=== PATIENT | female | born 1985 | race Caucasian/White ===

== ENCOUNTER → 2018-04-03 | Outpatient (CLI) | payer BC ==
--- NOTE | 2018-04-03 15:07 | CONS ---
CONSULTATION REASON FOR CONSULTATION: This is a consultation note for sleep apnea. 32-year-old female patient, referred to me for sleep apnea. The patient was suspected of obstructive sleep apnea. She has been told this by various people. She has been told this by Dr. Witt her dentist. Recently while undergoing a foot arch correction surgery the patient had difficulty waking up from anesthesia and she was snoring and gasping and having prolonged apneas. The anesthesiologist at [facility] also suggested to her having the evaluation done here. She does snore. She has excessive daytime sleepiness and fatigue. She wakes up tired and has trouble paying attention and has also problems with memory and concentration. She goes to bed around 8:30 pm wakes at 5:00 am in the morning. It takes a few minutes to fall asleep. Tyler score is 11 for now. Overall she has gained about 20 pounds over the past 5 years. She prefers to sleep on her side. She says that she is a shallow sleeper and she wakes up very easily with any noise makes her wake up. PAST MEDICAL HISTORY: Obesity. PAST SURGICAL HISTORY: Includes a myelomeningocele removal back in 1984, cholecystectomy on 02/12/2018, tonsillectomy and adenectomy 1991, x2 and foot surgery with correction of the foot arch. DRUG ALLERGIES: Not known. MEDICATIONS: None. SOCIAL HISTORY: Nonsmoker. No history of alcohol. No history of IV drugs. FAMILY HISTORY: Sister with narcolepsy and uncle with sleep apnea. REVIEW OF SYSTEMS: 12-point review of system was done. The patient denies having to be told that she quits breathing. Her however has noted that she snores very loud. No episodes of choking. No nocturia. No gasping for air. No sleepwalking. No sleep talking. No claustrophobia. No sexual dysfunction. PHYSICAL EXAMINATION: Her current vitals: BP is 141/65, pulse 107, respirations 16, saturation 99% on room air. Temperature 98.4, height is 63 inches. Weight 53.4, and BMI is 44.6, Tyler score is 11. Neck size 15.5. GENERAL APPEARANCE: Calm, comfortable. HEENT: The patient has partial in the upper jaw. No overbite. Mallampati class 4. No goiter or neck masses. Short neck. LUNGS: Clear to auscultation. HEART: Sounds are regular rate and rhythm. Normal S1, S2. No S3. No murmurs. ABDOMEN: Soft, nontender. No organomegaly. EXTREMITIES: No edema. No cyanosis or clubbing. NEUROLOGIC: Alert and oriented x3. No focal neurological deficits. PSYCHIATRIC: Negative for anxiety or depression. IMPRESSION: 1. Obstructive sleep apnea clinically suspected, under investigation. 2. Loud snoring. 3. Daytime fatigue and sleepiness. Tyler Score of 11. 4. Obesity BMI of 44.6. PLAN: 1. Proceed with a screening polysomnogram. 2. Encourage weight loss. 3. Implement good sleep hygiene measures. 4. We will continue to follow. MMODL / IJN: [id number] /
== END | disposition home or self-care (01) ==
LOC: SLEEP 13:04
PROVIDERS: ATTEND Internal Medicine Critical Care Medicine
DX: G47.10 Hypersomnia, unspecified (principal); E66.9 Obesity, unspecified; Z68.41 Body mass index [BMI] 40.0-44.9, adult
CPT/HCPCS: 99211

== ENCOUNTER → 2018-07-31 | Outpatient (CLI) | payer BC ==
--- NOTE | 2018-07-31 17:33 | PN ---
PROGRESS NOTE 33-year-old female patient diagnosed having mild ELLIOT with an AHI of 9.8. The patient has gone on her CPAP machine approximately 2-1/2 months back. She has demonstrated compliancy and she has passed her compliancy evaluation with the [employer] and insurance company. On today's evaluation she is coming in to get further advice regarding her ongoing treatment. I noted that she has not used her CPAP machine over the past 3 weeks. Apparently she had a bout of sinusitis and this was treated by her primary care physician. The patient was given a course of Augmentin twice a day for 10 days and Flonase. Today's speech is nasal yet for the most part, she is able to breathe through her nose. No facial pain. No frontal pain. No maxillary pain. No fever or chills. No significant purulent discharge. I checked the compliance data over the past 76 days and the patient has used the CPAP 59 out of the 76 days. She has been achieving 4.8 hours of CPAP use per night. Her P90 pressure is at 10.9, her leak factor is 6 L per minute, AHI while on treatment is down to 0.7. She is using an AirFit F10 full-face mask. Her weight is still up but she is trying to lose weight. She has already lost around 8 pounds since her initial evaluation. Overall, she is benefitting from treatment and she is interested in continuing the CPAP therapy for now. REVIEW OF SYSTEMS: 12-point review of system was done. Positive findings are mentioned above in history of present illness. No headaches for now. No fever or chills. No recurrent sinus infections. Her CPAP unit is clean and there is no indication of any bacterial contamination of the machine or the humidification chamber. She is using the heated tubing system for now. No nausea or vomiting. No abdominal pain. No dysuria, frequency or urgency. No headaches. No altered mentation. No chest pain. No cough or sputum production. PHYSICAL EXAMINATION: BP is 124/90, pulse 104, respirations 16, temperature 98.2. Saturation 97% on room air. GENERAL APPEARANCE: Calm, comfortable. Head is atraumatic, normocephalic. NECK: Supple. No JVD. No goiter or neck masses. Lungs diminished, otherwise clear. HEART: Sounds regular rate and rhythm. Normal S1, S2. No S3. No murmurs. ABDOMEN: Soft, nontender. No organomegaly. EXTREMITIES: No edema. No cyanosis or clubbing. NEUROLOGIC: The patient is alert and oriented x3. No focal neurological deficits. PSYCHIATRIC: Negative for anxiety or depression. IMPRESSION: 1. Symptomatic mild obstructive sleep apnea with an AHI of 9.8, currently undergoing CPAP therapy. The patient is on APAP with an average pressure of 10.9, with excellent clinical response. 2. Acute sinusitis being treated with antibiotics. This has affected her compliance. In general is the patient has been unable to use her CPAP unit for the past 3 weeks. Yet, she has recovered and she is going back on treatment. 3. Obesity with interval 8 pounds weight loss. Current weight is down to 242. PLAN: 1. Encourage further weight loss. 2. Continue APAP therapy at the same level of pressure. 3. AirFit F10 full-face mask. 4. Contact back if there is any recurrent sinus infections. 5. Continue the full-face mask. 6. Maintain good sleep hygiene measures. 7. We will continue to follow. MMODL / IJN: [id number] /
== END | disposition home or self-care (01) ==
LOC: SLEEP 14:06
PROVIDERS: ATTEND Internal Medicine Critical Care Medicine
DX: G47.33 Obstructive sleep apnea (adult) (pediatric) (principal); J01.90 Acute sinusitis, unspecified; E66.9 Obesity, unspecified; Z99.89 Dependence on other enabling machines and devices

== ENCOUNTER → 2018-08-31 | Outpatient (CLI) | payer BC ==
--- NOTE | 2018-09-01 10:35 | ECHOF ---
Referral Reason:R00.2 Palpitations; R06.02 SOB MEASUREMENTS -------- HEIGHT: 160.0 cm WEIGHT: 106.6 kg BP: RVIDd: 2.6 cm (< 3.3) IVSd: 1.0 cm (0.6 - 1.1) LVIDd: 5.1 cm (3.9 - 5.3) LVPWd: 1.0 cm (0.6 - 1.1) IVSs: 1.2 cm LVIDs: 3.5 cm LVPWs: 1.2 cm LAESV Index (A-L): 19.75 ml/m Ao Diam: 3.1 cm (2.0 - 3.7) AV Cusp: 1.9 cm (1.5 - 2.6) LA Diam: 3.1 cm (2.7 - 3.8) EPSS: 0.2 cm MV E Avinash: 0.88 m/s MV DecT: 180 ms MV A Avinash: 0.70 m/s MV E/A Ratio: 1.25 RAP: 5.00 mmHg RVSP: 11.06 mmHg MV EF SLOPE: 78.36 mm/s (70 - 150) MV EXCURSION: 1.78 cm (> 18.000) FINDINGS -------- Sinus rhythm. This was a technically good study. The left ventricular size is normal. Left ventricular wall thickness is normal. Overall left vent ricular systolic function is normal with, an EF between 55 - 60 %. The right ventricle is normal in size and function. Normal LA size by volume 22+/-6 ml/m2. The right atrium is normal in size. The aortic valve is trileaflet, and appears structurally normal. No aortic stenosis or regurgitation. The mitral valve is normal. There is trace mitral regurgitation. Trace tricuspid regurgitation present. Right ventricular systolic pressure is normal at < 35 mmHg. There is no evidence of pulmonary hypertension. Trace/mild (physiologic) pulmonic regurgitation. The aortic root size is normal. Normal inferior vena cava with normal inspiratory collapse consistent with estimated right atrial pre ssure of 5 mmHg. There is no pericardial effusion. CONCLUSIONS -------- 1. Sinus rhythm. 2. This was a technically good study. 3. The left ventricular size is normal. 4. Left ventricular wall thickness is normal. 5. Overall left ventricular systolic function is normal with, an EF between 55 - 60 %. 6. Normal LA size by volume 22+/-6 ml/m2. 7. The aortic valve is trileaflet, and appears structurally normal. No aortic stenosis or regurgitati on. 8. There is trace mitral regurgitation. 9. Trace tricuspid regurgitation present. 10. Right ventricular systolic pressure is normal at < 35 mmHg. 11. There is no evidence of pulmonary hypertension. 12. Trace/mild (physiologic) pulmonic regurgitation. 13. The aortic root size is normal. 14. There is no pericardial effusion. IT APPLICATION DEVELOPMENT MANAGER: Partha Arreola RDCS
== END ==
LOC: RADECHMAIN 12:36
PROVIDERS: ATTEND Family Medicine
DX: I37.1 Nonrheumatic pulmonary valve insufficiency (principal)
CPT/HCPCS: 93225; 93226; 93306

== ENCOUNTER → 2019-12-03 | Outpatient (CLI) | payer BC ==
--- NOTE | 2019-12-04 07:16 | SFUN ---
SLEEP CENTER FOLLOW UP NOTE This is a very pleasant 34-year-old female patient who has been seen by Dr. Go here in the [facility] back in 2018. She was found to have mild obstructive sleep apnea with an AHI of 9.8. She was fitted for a CPAP machine and an APAP with an average of 10.9 average pressure. She has been doing well for quite some time, unfortunately approximately 2 months ago, she had not been using her machine due to lack of proper equipment and tubing. She is here for a [id number] evaluation and reorder of her equipment. Her previous compliance data was evaluated and she was doing quite well. She had been utilizing an Air Fit F10 full-face mask. PHYSICAL EXAM: This is a very pleasant 34-year-old female patient. Maintaining good O2 saturations in the 90s on room air. Blood pressure 132/83, heart rate 100, respirations 16, temperature is 98.4, she is 98% O2 saturation on room air. She is 5 foot 3 inches at 263 pounds with a BMI of 46.5. HEAD: Normocephalic. Sclerae nonicteric. There is some crowding in the posterior pharynx. NECK: Supple. Trachea midline. LUNGS: Clear anteriorly and posteriorly. HEART: Regular, S1, S2. ABDOMEN: Soft, nontender. Bowel sounds are present. There is trace peripheral edema. No clubbing. No cyanosis. Peripheral pulses are intact. IMPRESSION: 1. Mild obstructive sleep apnea with an apnea-hypopnea index of 9.8. Initially programmed at APAP with an average pressure of 10.9. She has been tolerating this well. 2. History of sinusitis. 3. Obesity. 4. Anxiety/depression. PLAN: The patient was seen and evaluated by Dr. Go. He did fit her with a new Air Fit F 20 full-face mask, size small. He did order her new equipment and she is encouraged to bring her machine with her at her next appointment. She is again encouraged regarding the importance of weight loss and good sleep hygiene measures. She utilizes [employer] as her supplier. She will be seen here in 1 year unless she has any further questions or concerns. She verbalized understanding of the plan as agreeable. I, the cosigning physician, performed a history and physical examination on the patient. Lung sounds are clear. Maintain O2 saturation in the 90s on room air. I discussed the assessment and plan of care with my nurse practitioner, Lauryn Crenshaw. I attest the above note dictated by her. MMKALI / IJN: [id number] /
== END | disposition home or self-care (01) ==
LOC: SLEEP 14:36
PROVIDERS: ATTEND Internal Medicine Critical Care Medicine
DX: G47.33 Obstructive sleep apnea (adult) (pediatric) (principal); E66.9 Obesity, unspecified; F32.9 Major depressive disorder, single episode, unspecified; F41.9 Anxiety disorder, unspecified; Z87.09 Personal history of other diseases of the respiratory system; Z99.89 Dependence on other enabling machines and devices; Z68.42 Body mass index [BMI] 45.0-49.9, adult

== ENCOUNTER → 2020-02-24 | Outpatient (CLI) | payer OTHER ==
--- NOTE | 2020-02-24 15:59 | XR ---
EXAM TYPE: LUMBAR SPINE X RAY SERIES COMPARISON: NONE HISTORY: Pain TECHNIQUE: 4 views are submitted. FINDINGS: Alignment is anatomic. There is degenerative disc disease with the most marked findings at L4-5 and L 5-S1. Grade 1 anterolisthesis of L5 on S1. Suggestion of previous laminectomy at levels L3-L5. No com pression deformities. IMPRESSION: 1. Multilevel degenerative disc disease with postsurgical changes. Rate 1 anterolisthesis L5 relative to S1.
== END | disposition home or self-care (01) ==
LOC: RADXRMAIN 15:43
PROVIDERS: ATTEND Emergency Medicine
DX: M43.16 Spondylolisthesis, lumbar region (principal); M51.36 Other intervertebral disc degeneration, lumbar region; Z98.890 Other specified postprocedural states
CPT/HCPCS: 72100

== ENCOUNTER 2020-12-16 15:15 | Emergency (ER) | payer BC, OTHER ==
[2020-12-16] MEDS ORDERED: ACETAMINOPHEN TAB 500 MG TAB PO STA (18:12)
[2020-12-16] MEDS ORDERED: SODIUM CHLORIDE 0.9% 1,000 ML IV ONE (18:12)
--- NOTE | 2020-12-16 18:15 | ED ---
SOB HPI - General Chief Complaint: Shortness of Breath Stated Complaint: sob post covid+/poss blood clots sent by pcp Time Seen by Provider: 12/16/20 17:48 Source: patient Mode of arrival: wheelchair Limitations: no limitations - History of Present Illness Initial Comments: 35 year-old male patient presents to the emergency department for evaluation of increased shortness of breath and headache. Patient was diagnosed with COVID-19 on 12/01/20, started having symptoms about three days before that. Six days ago patient was seen and evaluated at [facility] for worsening symptoms. She had labs and CT of her chest and then was discharged with steroids. Patient states that she started feeling poorly again today so had a televisit with her primary care physician. She was told that she had an "infection" in her lungs and "three small blood clots" and was told to come back to the ER for evaluation. Patient states today she feels more short of breath and has a headache. States her headache is frontal and started yesterday. Denies any blurred or double vision. Denies numbness currently, weakness or extremities. States she does feel nauseated today. Has no appetite. Denies any lower extremity swelling. Denies history of lung conditions. States that she has been using her inhaler without relief. She has not started a steroid gi mary ellen to her by the other hospital. Patient denies any recent rash, chest pain, abdominal pain, vomiting, diarrhea, constipation, back pain, numbness, tingling, dizziness, weakness, hematuria, dysuria, urinary urgency, urinary frequency, headache, visual changes, or any other complaints. - Related Data Home Medications Medication Instructions Recorded Confirmed Albuterol Sulfate [Albuterol 1 puff PO RT-Q4H PRN 12/16/20 12/16/20 Sulfate Hfa] Fexofenadine HCl [Janet Allergy] 180 mg PO HS 12/16/20 12/16/20 Previous Rx's Medication Instructions Recorded Dexamethasone 6 mg PO DAILY #10 tablet 12/16/20 Allergies Allergy/AdvReac Type Severity Reaction Status Date / Time amoxicillin [From Augmentin] AdvReac yeast Verified 12/16/20 18:27 infection clavulanic acid AdvReac yeast Verified 12/16/20 18:27 [From Augmentin] infection Review of Systems ROS Statement: Those systems with pertinent positive or pertinent negative responses have been documented in the HPI. ROS Other: All systems not noted in ROS Statement are negative. Past Medical History Past Medical History: Sleep Apnea/CPAP/BIPAP Additional Past Medical History / Comment(s): spina bifida pmdd, Covid 3/9 , anemia History of Any Multi-Drug Resistant Organisms: None Reported Past Surgical History: Adenoidectomy, Section, Cholecystectomy, Tonsillectomy Additional Past Surgical History / Comment(s): spina bifida surg as a child Past Psychological History: Anxiety Smoking Status: Never smoker Past Alcohol Use History: Rare Past Drug Use History: None Reported General Exam Limitations: no limitations General appearance: alert, in no apparent distress, other (Physical well- developed, well-nourished adult female patient in no acute distress. Vital signs upon presentation are temperature 100.1F, pulse 111, respirations 24, blood pressure 142/91, pulse ox 99% on room air.) Eye exam: Present: normal appearance, PERRL, EOMI. Absent: scleral icterus, conjunctival injection, periorbital swelling ENT exam: Present: normal exam, normal oropharynx, mucous membranes moist Respiratory exam: Present: normal lung sounds bilaterally. Absent: respiratory distress, wheezes, rales, rhonchi, stridor Cardiovascular Exam: Present: regular rate, normal rhythm, normal heart sounds. Absent: systolic murmur, diastolic murmur, rubs, gallop, clicks GI/Abdominal exam: Present: soft, normal bowel sounds. Absent: distended, tenderness, guarding, rebound, rigid Neurological exam: Present: alert, oriented X3, CN II-XII intact Psychiatric exam: Present: normal affect, normal mood Skin exam: Present: warm, dry, intact, normal color. Absent: rash Course Vital Signs 12/16/20 12/16/20 16:58 20:58 Temperature 100.1 F H Pulse Rate 111 H 112 H Respiratory 24 20 Rate Blood Pressure 142/91 147/75 O2 Sat by Pulse 99 98 Oximetry Medical Decision Making - Medical Decision Making 35-year-old female patient presents to the emergency department today for evaluation of worsening shortness of breath and nausea after being diagnosed with COVID-19. Physical examination reveals clear lung sounds. She was satting normally at 98-99% on room air. She was slightly tachycardic at 109 to 115. She did have a mild fever around 100.4. Labs reviewed and were unremarkable. CT chest angiography was obtained and showed no evidence for pulmonary embolism but did show ground glass opacities consistent with Covid-19 pneumonia. I did discuss findings and results with the patient. She'll be discharged with instructions to take steroids. Continue her inhaler. She will be given time off work until her fever resolves completely. She is instructed to follow-up with her primary care physician for recheck in 1-2 days. Return to the emergency department for any new, worsening, or concerning symptoms. She verbalizes understanding and agrees this plan. Case discussed with my attending Dr. Max. - Lab Data Result diagrams: 12/16/20 19:45 12/16/20 19:45 Lab Results 12/16/20 12/16/20 12/16/20 Range/Units 19:45 19:45 19:45 WBC 8.0 (3.8-10.6) k/uL RBC 4.72 (3.80-5.40) m/uL Hgb 10.6 L (11.4-16.0) gm/dL Hct 32.8 L (34.0-46.0) % MCV 69.6 L (80.0-100.0) fL MCH 22.4 L (25.0-35.0) pg MCHC 32.1 (31.0-37.0) g/dL RDW 16.8 H (11.5-15.5) % Plt Count 447 (150-450) k/uL MPV 7.0 Neutrophils % 45 % Lymphocytes % 44 % Monocytes % 7 % Eosinophils % 2 % Basophils % 1 % Neutrophils # 3.6 (1.3-7.7) k/uL Lymphocytes # 3.5 (1.0-4.8) k/uL Monocytes # 0.6 (0-1.0) k/uL Eosinophils # 0.1 (0-0.7) k/uL Basophils # 0.0 (0-0.2) k/uL Hypochromasia Moderate Anisocytosis Slight Microcytosis Marked PT 10.1 (9.0-12.0) sec INR 0.9 (<1.2) APTT 22.0 (22.0-30.0) sec D-Dimer 0.31 (<0.60) mg/L FEU Sodium 140 (137-145) mmol/L Potassium 3.9 (3.5-5.1) mmol/L Chloride 106 (98-107) mmol/L Carbon Dioxide 23 (22-30) mmol/L Anion Gap 11 mmol/L BUN 17 (7-17) mg/dL Creatinine 0.56 (0.52-1.04) mg/dL Est GFR (CKD-EPI)AfAm >90 (>60 ml/min/1.73 sqM) Est GFR (CKD-EPI)NonAf >90 (>60 ml/min/1.73 sqM) Glucose 95 (74-99) mg/dL Plasma Lactic Acid Mary Ellen (0.7-2.0) mmol/L Calcium 9.3 (8.4-10.2) mg/dL Magnesium 2.2 (1.6-2.3) mg/dL Total Bilirubin 0.4 (0.2-1.3) mg/dL AST 31 (14-36) U/L ALT 33 (4-34) U/L Alkaline Phosphatase 112 (38-126) U/L Lactate Dehydrogenase 460 (313-618) U/L C-Reactive Protein 12.9 H (<10.0) mg/L Total Protein 7.6 (6.3-8.2) g/dL Albumin 4.2 (3.5-5.0) g/dL 12/16/20 Range/Units 19:45 WBC (3.8-10.6) k/uL RBC (3.80-5.40) m/uL Hgb (11.4-16.0) gm/dL Hct (34.0-46.0) % MCV (80.0-100.0) fL MCH (25.0-35.0) pg MCHC (31.0-37.0) g/dL RDW (11.5-15.5) % Plt Count (150-450) k/uL MPV Neutrophils % % Lymphocytes % % Monocytes % % Eosinophils % % Basophils % % Neutrophils # (1.3-7.7) k/uL Lymphocytes # (1.0-4.8) k/uL Monocytes # (0-1.0) k/uL Eosinophils # (0-0.7) k/uL Basophils # (0-0.2) k/uL Hypochromasia Anisocytosis Microcytosis PT (9.0-12.0) sec INR (<1.2) APTT (22.0-30.0) sec D-Dimer (<0.60) mg/L FEU Sodium (137-145) mmol/L Potassium (3.5-5.1) mmol/L Chloride (98-107) mmol/L Carbon Dioxide (22-30) mmol/L Anion Gap mmol/L BUN (7-17) mg/dL Creatinine (0.52-1.04) mg/dL Est GFR (CKD-EPI)AfAm (>60 ml/min/1.73 sqM) Est GFR (CKD-EPI)NonAf (>60 ml/min/1.73 sqM) Glucose (74-99) mg/dL Plasma Lactic Acid Mary Ellen 0.9 (0.7-2.0) mmol/L Calcium (8.4-10.2) mg/dL Magnesium (1.6-2.3) mg/dL Total Bilirubin (0.2-1.3) mg/dL AST (14-36) U/L ALT (4-34) U/L Alkaline Phosphatase (38-126) U/L Lactate Dehydrogenase (313-618) U/L C-Reactive Protein (<10.0) mg/L Total Protein (6.3-8.2) g/dL Albumin (3.5-5.0) g/dL - EKG Data -: EKG Interpreted by Me EKG Comments: EKG obtained at 1713 shows sinus tachycardia with a ventricular rate of 101, OR interval 148, QR jainism 78, QT 342, QTc 443. No evidence of ST elevation o r depression. - Radiology Data Radiology results: report reviewed, image reviewed CT chest angiography for pulmonary embolism was obtained. Report was reviewed in its entirety. Impression by Dr. Blackwood show scattered patchy ground glass opacities, concerning for atypical infection to include Covid pneumonia. No acute pulmonary embolism. Disposition Clinical Impression: COVID-19, Shortness of breath Disposition: HOME SELF-CARE Condition: Good Instructions (If sedation given, give patient instructions): Coronavirus Disease 2019 (COVID-19) Additional Instructions: Start the steroids. Continue your inhaler. Follow-up with your primary care physician for recheck in 1-2 days. Return to the emergency department for any new, worsening, or concerning symptoms. Is patient prescribed a controlled substance at d/c from ED?: No Referrals: Jung Garza MD [Primary Care Provider] - 1-2 days Time of Disposition: 21:40
[2020-12-16 20:07] LABS: Anisocytosis Slight; Basophils % (A) 1 %; Eosinophils # (A) 0.1 k/uL (0-0.7); Eosinophils % (A) 2 %; HCT 32.8 % (34.0-46.0); HGB 10.6 gm/dL (11.4-16.0); Hypochromasia Moderate; Lymphocytes # (A) 3.5 k/uL (1.0-4.8); Lymphocytes % (A) 44 %; MCH 22.4 pg (25.0-35.0); MCHC 32.1 g/dL (31.0-37.0); MCV 69.6 fL (80.0-100.0); Microcytosis Marked; Monocytes # (A) 0.6 k/uL (0-1.0); Monocytes % (A) 7 %; Neutrophils # (A) 3.6 k/uL (1.3-7.7); Neutrophils % (A) 45 %; Platelet Count 447 k/uL (150-450); RBC 4.72 m/uL (3.80-5.40); RDW 16.8 % (11.5-15.5)
[2020-12-16 20:19] LABS: ALT 33 U/L (4-34); AST 31 U/L (14-36); African American GFR (CKD) >90 (>60 ml/min/1.73 sqM); Albumin 4.2 g/dL (3.5-5.0); Alkaline Phosphatase 112 U/L (38-126); Anion Gap 11 mmol/L; Blood Urea Nitrogen 17 mg/dL (7-17); C Reactive Protein 12.9 mg/L (<10.0); Calcium 9.3 mg/dL (8.4-10.2); Carbon Dioxide 23 mmol/L (22-30); Chloride 106 mmol/L (98-107); Glucose 95 mg/dL (74-99); LDH 460 U/L (313-618); Magnesium 2.2 mg/dL (1.6-2.3); Non-African American GFR(CKD) >90 (>60 ml/min/1.73 sqM); Potassium 3.9 mmol/L (3.5-5.1); Sodium 140 mmol/L (137-145); Total Bilirubin 0.4 mg/dL (0.2-1.3); Total Protein 7.6 g/dL (6.3-8.2)
[2020-12-16 20:28] LABS: INR 0.9 (<1.2)
[2020-12-16 20:29] LABS: D-Dimer 0.31 mg/L FEU (<0.60); Prothrombin Time 10.1 sec (9.0-12.0)
--- NOTE | 2020-12-16 20:52 | CT ---
EXAMINATION TYPE: CT chest angio for PE DATE OF EXAM: 12/16/2020 COMPARISON: None available. HISTORY: Shortness of breath. CT DLP: 634.2 mGycm Automated exposure control for dose reduction was used. CONTRAST: CT Chest for pulmonary embolism performed with with IV Contrast, patient injected with 60ml mL of Iso navi 370. FINDINGS: LUNGS: There are scattered small, patchy ground glass opacities throughout the bilateral lungs. No si gnificant pleural effusion or pneumothorax MEDIASTINUM: There is satisfactory enhancement of the pulmonary artery and its branches, there is no CT evidence for pulmonary embolism. There are no greater than 1 cm hilar or mediastinal lymph nodes. No pericardial effusion is seen. OTHER: No additional significant abnormality is seen. IMPRESSION: Scattered patchy ground glass opacities, concerning for atypical infection to include Covid pneumonia . No acute PE.
[2020-12-16 22:05] VITALS: BP 180/90; PULSE 95; RESP 18; TEMP 98.2
== END 2020-12-16 21:35 | disposition home or self-care (01) ==
LOC: EC 15:15
DX: U07.1 COVID-19 (principal); F41.9 Anxiety disorder, unspecified; G47.30 Sleep apnea, unspecified
CPT/HCPCS: 36415; 85379; 80053; 82728; 83605; 83615; 83735; 85025; 85610; 85730; 86140; 87040; 84145; 71275; 99285; 96360; Q9967; 93005

== ENCOUNTER → 2021-04-28 | Outpatient (CLI) | payer BC ==
--- NOTE | 2021-04-29 07:25 | MR ---
EXAMINATION TYPE: MR brain wo/w con DATE OF EXAM: 04/28/2021 COMPARISON: NONE HISTORY: Amnesia, dysphagia, numbness right side TECHNIQUE: Multiplanar, multisequence images of the brain and brainstem is performed without and with IV contras t, utilizing 12.5 mL intravenous Gadavist . FINDINGS: Diffusion weighted images demonstrate no evidence of a recent infarct or other diffusion ab normality. There is no extra-axial fluid collection or significant white matter signal abnormality. The ventricular system and cisternal spaces are normal in size and appearance. The brain volume is age appropriate. Midline structures demonstrate normal morphology. The craniocervical junction appears within normal limits. Post contrast images demonstrate no abnormal enhancement. The dural venous sinuses appear pa tent. The visualized sinuses are clear and the globes are intact. IMPRESSION: Unremarkable study.
== END | disposition home or self-care (01) ==
LOC: RADMRIMAIN 09:36
PROVIDERS: ATTEND Psychiatry & Neurology Neurology
DX: R41.3 Other amnesia (principal)
CPT/HCPCS: 70553; A9585

== ENCOUNTER 2022-10-04 09:06 | Emergency (ER) | payer BC ==
[2022-10-04 09:23] VITALS: RESP 18
[2022-10-04] MEDS ORDERED: SODIUM CHLORIDE 0.9% 1,000 ML IV STA (10:02)
--- NOTE | 2022-10-04 10:09 | ED ---
General Adult HPI - General Chief complaint: Nausea/Vomiting/Diarrhea Stated complaint: vomiting, back pain Time Seen by Provider: 10/04/22 09:32 Source: patient Mode of arrival: ambulatory Limitations: no limitations - History of Present Illness Initial comments: Dictation was produced using [employer] dictation software. please excuse any grammatical, word or spelling errors. Chief Complaint: 37-year-old female presents emergency department for multiple complaints History of Present Illness: Is 37-year-old female she has past medical history of sleep apnea, anemia. 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 Recently prescribed Augmentin to treat ear infection and URI. States that her urinary symptoms have improved. She does report a mild cough. She does have some sharp upper right-sided chest pain. States that the pain is not exacerbated by alleviated by any factors. She does have diarrhea and abdominal pain. Her diar rohan is yellow. She has left sided abdominal pain. No history of diverticulitis. She has history of cholecystectomy. The ROS documented in this emergency department record has been reviewed and c onfirmed by me. Those systems with pertinent positive or negative responses have been documented in the HPI. All other systems are other negative and/or noncontributory. PHYSICAL EXAM: General Impression: Alert and oriented x3, not in acute distress HEENT: Normocephalic atraumatic, extra-ocular movements intact, pupils equal and reactive to light bilaterally, mucous membranes moist. Cardiovascular: Heart regular rate and rhythm Chest: Able to complete full sentences, no retractions, no tachypnea Abdomen: abdomen soft, non-tender, non-distended, no organomegaly Musculoskeletal: Pulses present and equal in all extremities, no peripheral edema Motor: no focal deficits noted Neurological: CN II-XII grossly intact, no focal motor or sensory deficits noted Skin: Intact with no visualized rashes Psych: Normal affect and mood ED course: 37-year-old female presents emergency department for multiple complaints. Complaints include chest pain, cough, abdominal pain, diarrhea. Nursing notes and chart review was performed Laboratory evaluation obtained. CBC, metabolic panel, labs are negative. Urinalysis negative. Viral panel is negative. Chest x-ray and abdominal x-ray negative. Patient observed in emergency department for 3 hours and 15 minutes. Vitamin C medical condition upon reevaluation at 12:20 PM. Patient was notified of her anemia followed with a primary care doctor. Patient's symptoms are secondary to gastroenteritis. Was pt. sent in by a medical professional or institution (MIRTA Ribeiro, PARCEL POST CLERK, urgent care, hospital, or custodial...) When possible be specific @ -No Did you speak to anyone other than the patient for history (EMS, parent, family, police, friend...)? What history was obtained from this source @ -No Did you review nursing and triage notes (agree or disagree)? Why? @ -I reviewed and agree with nursing and triage notes Were old charts reviewed (outside hosp., previous admission, EMS record, old EKG, old radiological studies, urgent care reports/EKG's, custodial records)? Report findings @ -No old charts were reviewed Differential Diagnosis (chest pain, altered mental status, abdominal pain women, abdominal pain men, vaginal bleeding, weakness, fever, dyspnea, syncope, headache, dizziness, GI bleed, back pain, seizure, CVA, palpatations, mental health)? @ -not applicable EKG interpreted by me (3pts min.). @ -As above X-rays interpreted by me (1pt min.). @ -See above CT interpreted by me (1pt min.). @ -None done U/S interpreted by me (1pt. min.). @ -None done What testing was considered but not performed or refused? (CT, X-rays, U/S, labs)? Why? @ -CT was considered however have patient has a nonsurgical abdomen on physical exam What meds were considered but not given or refused? Why? @ -None Did you discuss the management of the patient with other professionals (professionals i.e. MIRTA Ribeiro, PARCEL POST CLERK, lab, RT, psych nurse, social services director, gymnasium teacher, teacher, police patrol officer, human services case manager)? Give summary @ -No Was smoking cessation discussed for >3mins.? @ -No Was critical care preformed (if so, how long)? @ -No Were there social determinants of health that impacted care today? How? (Homelessness, low income, unemployed, alcoholism, drug addiction, transportation, low edu. Level, literacy, decrease access to med. care, senior living, rehab)? @ -No Was there de-escalation of care discussed even if they declined (Discuss DNR or withdrawal of care, Hospice)? DNR status @ -No What co-morbidities impacted this encounter? (DM, HTN, Smoking, COPD, CAD, Cancer, CVA, ARF, Chemo, Hep., AIDS, mental health diagnosis, sleep apnea, morbid obesity)? @ -None Was patient admitted / discharged? Hospital course, mention meds given and route, prescriptions, significant lab abnormalities, going to OR and other pertinent info. @ -See above Undiagnosed new problem with uncertain prognosis? @ -No Drug Therapy requiring intensive monitoring for toxicity (Heparin, Nitro, Insulin, Cardizem)? @ -No Were any procedures done? @ -No Diagnosis/symptom? @ -Gastroenteritis, likely viral Acute, or Chronic, or Acute on Chronic? @ -Acute Uncomplicated (without systemic symptoms) or Complicated (systemic symptoms)? @ -Uncomplicated Side effects of treatment? @ -No Exacerbation, Progression, or Severe Exacerbation? @ -No Poses a threat to life or bodily function? How? (Chest pain, [place], [place], pneumonia, PE, COPD, DKA, ARF, appy, cholecystitis, CVA, Diverticulitis, Homicidal, Suicidal, threat to staff... and all critical care pts) @ -No - Related Data Home Medications Medication Instructions Recorded Confirmed Fexofenadine HCl [Janet Allergy] 180 mg PO HS 12/16/20 10/04/22 LORazepam [Ativan] 0.5 mg PO DAILY PRN 10/04/22 10/04/22 PARoxetine HCL [Paxil] 30 mg PO HS 10/04/22 10/04/22 Allergies Allergy/AdvReac Type Severity Reaction Status Date / Time amoxicillin [From Augmentin] AdvReac yeast Verified 10/04/22 12:01 infection clavulanic acid AdvReac yeast Verified 10/04/22 12:01 [From Augmentin] infection Review of Systems ROS Statement: Those systems with pertinent positive or pertinent negative responses have been documented in the HPI. ROS Other: All systems not noted in ROS Statement are negative. Past Medical History Past Medical History: Asthma, Sleep Apnea/CPAP/BIPAP Additional Past Medical History / Comment(s): spina bifida pmdd, Covid 3/9 , anemia, POTS History of Any Multi-Drug Resistant Organisms: None Reported Past Surgical History: Adenoidectomy, Section, Cholecystectomy, Tonsillectomy Additional Past Surgical History / Comment(s): spina bifida surg as a child Past Psychological History: Anxiety Smoking Status: Never smoker Past Alcohol Use History: Rare Past Drug Use History: Marijuana General Exam Limitations: no limitations Course Vital Signs 10/04/22 10/04/22 09:18 10:21 Temperature 98 F Pulse Rate 101 H 95 Respiratory 18 18 Rate Blood Pressure 120/84 146/97 O2 Sat by Pulse 98 98 Oximetry Medical Decision Making - Lab Data Result diagrams: 10/04/22 10:15 10/04/22 10:15 Lab Results 10/04/22 10/04/22 10/04/22 Range/Units 10:15 10:15 10:15 WBC 10.2 (3.8-10.6) k/uL RBC 4.77 (3.80-5.40) m/uL Hgb 9.2 L (11.4-16.0) gm/dL Hct 32.3 L (34.0-46.0) % MCV 67.6 L (80.0-100.0) fL MCH 19.3 L (25.0-35.0) pg MCHC 28.6 L (31.0-37.0) g/dL RDW 16.9 H (11.5-15.5) % Plt Count 471 H (150-450) k/uL MPV 7.6 Neutrophils % 63 % Lymphocytes % 28 % Monocytes % 5 % Eosinophils % 1 % Basophils % 0 % Neutrophils # 6.4 (1.3-7.7) k/uL Lymphocytes # 2.8 (1.0-4.8) k/uL Monocytes # 0.5 (0-1.0) k/uL Eosinophils # 0.2 (0-0.7) k/uL Basophils # 0.0 (0-0.2) k/uL Hypochromasia Marked Anisocytosis Slight Microcytosis Marked Sodium 138 (137-145) mmol/L Potassium 4.2 (3.5-5.1) mmol/L Chloride 107 (98-107) mmol/L Carbon Dioxide 25 (22-30) mmol/L Anion Gap 6 mmol/L BUN 13 (7-17) mg/dL Creatinine 0.44 L (0.52-1.04) mg/dL Est GFR (CKD-EPI)AfAm >90 (>60 ml/min/1.73 sqM) Est GFR (CKD-EPI)NonAf >90 (>60 ml/min/1.73 sqM) Glucose 99 (74-99) mg/dL Calcium 8.4 (8.4-10.2) mg/dL Total Bilirubin 0.2 (0.2-1.3) mg/dL AST 36 (14-36) U/L ALT 24 (4-34) U/L Alkaline Phosphatase 113 (38-126) U/L Troponin I (0.000-0.034) ng/mL Total Protein 7.3 (6.3-8.2) g/dL Albumin 3.9 (3.5-5.0) g/dL Lipase 152 (23-300) U/L Urine Color Urine Appearance (Clear) Urine pH (5.0-8.0) Ur Specific [place] (1.001-1.035) Urine Protein (Negative) Urine Glucose (UA) (Negative) Urine Ketones (Negative) Urine Blood (Negative) Urine Nitrite (Negative) Urine Bilirubin (Negative) Urine Urobilinogen (<2.0) mg/dL Ur Leukocyte Esterase (Negative) Urine RBC (0-5) /hpf Urine WBC (0-5) /hpf Ur Squamous Epith Cells (0-4) /hpf Urine Mucus (None) /hpf Urine HCG, Qual (Not Detectd) Influenza Type A (PCR) Not Detected (Not Detectd) Influenza Type B (PCR) Not Detected (Not Detectd) RSV (PCR) Not Detected (Not Detectd) SARS-CoV-2 (PCR) Not Detected (Not Detectd) 10/04/22 10/04/22 10/04/22 Range/Units 10:15 10:15 10:15 WBC (3.8-10.6) k/uL RBC (3.80-5.40) m/uL Hgb (11.4-16.0) gm/dL Hct (34.0-46.0) % MCV (80.0-100.0) fL MCH (25.0-35.0) pg MCHC (31.0-37.0) g/dL RDW (11.5-15.5) % Plt Count (150-450) k/uL MPV Neutrophils % % Lymphocytes % % Monocytes % % Eosinophils % % Basophils % % Neutrophils # (1.3-7.7) k/uL Lymphocytes # (1.0-4.8) k/uL Monocytes # (0-1.0) k/uL Eosinophils # (0-0.7) k/uL Basophils # (0-0.2) k/uL Hypochromasia Anisocytosis Microcytosis Sodium (137-145) mmol/L Potassium (3.5-5.1) mmol/L Chloride (98-107) mmol/L Carbon Dioxide (22-30) mmol/L Anion Gap mmol/L BUN (7-17) mg/dL Creatinine (0.52-1.04) mg/dL Est GFR (CKD-EPI)AfAm (>60 ml/min/1.73 sqM) Est GFR (CKD-EPI)NonAf (>60 ml/min/1.73 sqM) Glucose (74-99) mg/dL Calcium (8.4-10.2) mg/dL Total Bilirubin (0.2-1.3) mg/dL AST (14-36) U/L ALT (4-34) U/L Alkaline Phosphatase (38-126) U/L Troponin I <0.012 (0.000-0.034) ng/mL Total Protein (6.3-8.2) g/dL Albumin (3.5-5.0) g/dL Lipase (23-300) U/L Urine Color Yellow Urine Appearance Cloudy H (Clear) Urine pH 5.5 (5.0-8.0) Ur Specific [place] 1.026 (1.001-1.035) Urine Protein Trace H (Negative) Urine Glucose (UA) Negative (Negative) Urine Ketones Negative (Negative) Urine Blood Moderate H (Negative) Urine Nitrite Negative (Negative) Urine Bilirubin Negative (Negative) Urine Urobilinogen <2.0 (<2.0) mg/dL Ur Leukocyte Esterase Trace H (Negative) Urine RBC 4 (0-5) /hpf Urine WBC 2 (0-5) /hpf Ur Squamous Epith Cells 16 H (0-4) /hpf Urine Mucus Few H (None) /hpf Urine HCG, Qual Not Detected (Not Detectd) Influenza Type A (PCR) (Not Detectd) Influenza Type B (PCR) (Not Detectd) RSV (PCR) (Not Detectd) SARS-CoV-2 (PCR) (Not Detectd) Disposition Clinical Impression: Gastroenteritis Disposition: HOME SELF-CARE Condition: Good Instructions (If sedation given, give patient instructions): Acute Diarrhea (ED) Is patient prescribed a controlled substance at d/c from ED?: No Referrals: Margie Echevarria MD [Primary Care Provider] - 1-2 days Time of Disposition: 12:24
[2022-10-04 10:28] LABS: Anisocytosis Slight; Basophils % (A) 0 %; Eosinophils # (A) 0.2 k/uL (0-0.7); Eosinophils % (A) 1 %; HCT 32.3 % (34.0-46.0); HGB 9.2 gm/dL (11.4-16.0); Hypochromasia Marked; Lymphocytes # (A) 2.8 k/uL (1.0-4.8); Lymphocytes % (A) 28 %; MCH 19.3 pg (25.0-35.0); MCHC 28.6 g/dL (31.0-37.0); MCV 67.6 fL (80.0-100.0); Mean Platelet Volume 7.6; Microcytosis Marked; Monocytes # (A) 0.5 k/uL (0-1.0); Monocytes % (A) 5 %; Neutrophils # (A) 6.4 k/uL (1.3-7.7); Neutrophils % (A) 63 %; Platelet Count 471 k/uL (150-450); RBC 4.77 m/uL (3.80-5.40); RDW 16.9 % (11.5-15.5); WBC 10.2 k/uL (3.8-10.6)
[2022-10-04 10:34] LABS: Appearance,Urine Cloudy (Clear); Bilirubin,Urine Negative (Negative); Blood,Urine Moderate (Negative); Color,Urine Yellow; Glucose,Urine (UA) Negative (Negative); Ketones,Urine Negative (Negative); Leukocyte Esterase,Urine Trace (Negative); Mucus,Urine Few /hpf; Nitrite,Urine Negative (Negative); PH, Urine 5.5 (5.0-8.0); Protein,Urine Trace (Negative); RBC,Urine 4 /hpf (0-5); Specific Gravity,Urine 1.026 (1.001-1.035); Squamous Epithelial Cell,Urine 16 /hpf (0-4); Urobilinogen,Urine <2.0 mg/dL (<2.0); WBC,Urine 2 /hpf (0-5)
[2022-10-04 10:56] LABS: ALT 24 U/L (4-34); AST 36 U/L (14-36); African American GFR (CKD) >90 (>60 ml/min/1.73 sqM); Albumin 3.9 g/dL (3.5-5.0); Alkaline Phosphatase 113 U/L (38-126); Anion Gap 6 mmol/L; Blood Urea Nitrogen 13 mg/dL (7-17); Calcium 8.4 mg/dL (8.4-10.2); Carbon Dioxide 25 mmol/L (22-30); Chloride 107 mmol/L (98-107); Glucose 99 mg/dL (74-99); Lipase 152 U/L (23-300); Non-African American GFR(CKD) >90 (>60 ml/min/1.73 sqM); Potassium 4.2 mmol/L (3.5-5.1); Sodium 138 mmol/L (137-145); Total Bilirubin 0.2 mg/dL (0.2-1.3); Total Protein 7.3 g/dL (6.3-8.2)
--- NOTE | 2022-10-04 11:06 | XR ---
EXAMINATION TYPE: XR chest 2V DATE OF EXAM: 10/04/2022 11:02 AM COMPARISON: Chest radiographs from 11/11/2015 TECHNIQUE: XR chest 2V Frontal and lateral views of the chest. CLINICAL INDICATION:Female, 37 years old with history of pain; FINDINGS: Lungs/Pleura: There is no evidence of pleural effusion, focal consolidation, or pneumothorax. Pulmonary vascularity: Unremarkable. Heart/mediastinum: Cardiomediastinal silhouette is unremarkable. Musculoskeletal: No acute osseous pathology. Other findings: Cholecystectomy clips in the right upper quadrant. IMPRESSION: No acute cardiopulmonary disease/process.
--- NOTE | 2022-10-04 11:08 | XR ---
EXAMINATION TYPE: XR abdomen 1V DATE OF EXAM: 10/04/2022 COMPARISON: Abdominal radiograph 09/10/2015 HISTORY: Pain TECHNIQUE: Upright view of the abdomen was obtained with 2 radiographs. FINDINGS: Small bowel demonstrates no evidence for dilatation or air fluid levels. Gas and fecal material is seen in non-distended colon. No convincing evidence for pneumoperitoneum. No unusual calcifications. Cholecystectomy clips in the right upper quadrant. Bilateral tubal ligation clips. The lung bases are clear. The osseous structures are intact. 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 IMPRESSION: Overall nonobstructive bowel gas pattern.
[2022-10-04 12:35] VITALS: BP 152/92; PULSE 107; TEMP 98.4
== END 2022-10-04 12:35 | disposition home or self-care (01) ==
LOC: EC 09:06
DX: K52.9 Noninfective gastroenteritis and colitis, unspecified (principal); F41.9 Anxiety disorder, unspecified; G47.30 Sleep apnea, unspecified; F12.90 Cannabis use, unspecified, uncomplicated; Z88.0 Allergy status to penicillin; Z88.1 Allergy status to other antibiotic agents; Z86.16 Personal history of COVID-19; Z20.822 Contact with and (suspected) exposure to COVID-19
CPT/HCPCS: 36415; 71046; 74018; 80053; 81001; 81025; 83690; 84484; 85025; 87636; 93005; 96360; 96361; 99284

== ENCOUNTER 2024-10-02 11:21 | Emergency (ER) | payer BC ==
[2024-10-02 11:30] VITALS: RESP 18; TEMP 97.8
--- NOTE | 2024-10-02 11:44 | ED ---
Dizziness HPI - General Chief Complaint: Headache Stated Complaint: headache,dizziness Time Seen by Provider: 10/02/24 11:25 Source: patient, EMS, RN notes reviewed Mode of arrival: EMS Limitations: no limitations - History of Present Illness Initial Comments: This is a 39-year-old female who presents to the emergency department for dizziness. Patient was at work today and started to feel very dizzy and noticed that her heart was racing. She then got clammy and was worried that she was having a heart attack. She had only mild chest discomfort, states that she just felt like her heart was racing. States that she now has a mild headache, which feels like a typical headache she has had in the past. In general, states that she just "does not feel right" and for the last week has felt somewhat unwell. MD Complaint: dizziness - Related Data Home Medications Medication Instructions Recorded Confirmed Fexofenadine HCl [Janet Allergy] 180 mg PO HS 12/16/20 10/04/22 LORazepam [Ativan] 0.5 mg PO DAILY PRN 10/04/22 10/04/22 PARoxetine HCL [Paxil] 30 mg PO HS 10/04/22 10/04/22 Allergies Allergy/AdvReac Type Severity Reaction Status Date / Time amoxicillin [From Augmentin] AdvReac yeast Verified 10/04/22 12:01 infection clavulanic acid AdvReac yeast Verified 10/04/22 12:01 [From Augmentin] infection Review of Systems ROS Statement: Those systems with pertinent positive or pertinent negative responses have been documented in the HPI. ROS Other: All systems not noted in ROS Statement are negative. Past Medical History Past Medical History: Asthma, Sleep Apnea/CPAP/BIPAP Additional Past Medical History / Comment(s): spina bifida pmdd, Covid 3/9 , anemia, BARBER, PCOS History of Any Multi-Drug Resistant Organisms: None Reported Past Surgical History: Adenoidectomy, Section, Cholecystectomy, Tonsillectomy Additional Past Surgical History / Comment(s): spina bifida surg as a child Past Psychological History: Anxiety Smoking Status: Never smoker Past Alcohol Use History: Rare Past Drug Use History: Marijuana General Exam Limitations: no limitations General appearance: alert, in no apparent distress Head exam: Present: atraumatic, normocephalic, normal inspection Respiratory exam: Present: normal lung sounds bilaterally. Absent: respiratory distress, wheezes, rales, rhonchi, stridor Cardiovascular Exam: Present: regular rate, normal rhythm, normal heart sounds. Absent: systolic murmur, diastolic murmur, rubs, gallop, clicks Neurological exam: Present: alert, oriented X3, CN II-XII intact Psychiatric exam: Present: normal affect, normal mood Skin exam: Present: warm, dry, intact, normal color. Absent: rash Course Vital Signs 10/02/24 10/02/24 11:26 15:31 Temperature 97.8 F Pulse Rate 107 H 78 Respiratory 18 18 Rate Blood Pressure 130/81 132/70 O2 Sat by Pulse 96 98 Oximetry Medical Decision Making - Medical Decision Making This is a 39-year-old female who presents to the emergency department for dizziness. Was pt. sent in by a medical professional or institution? @ -No Did you speak to anyone other than the patient for history? @ -No Did you review nursing and triage notes? @ -Yes, and I agree, it is accurate with regards to the patient's symptoms. Were old charts reviewed? @ -No Differential Diagnosis? @ -Differential Dizziness: Benign paroxysmal positional Vertigo, Meniere's disease, otitis media, acoustic neuroma, vertebrobasilar insufficiency, cerebellar stroke, encephalitis, hypovolemic, arrhythmia, coronary artery syndrome, anemia, this is not meant to be an all-inclusive list EKG interpreted by me (3pts min.)? @ -EKG interpreted by me demonstrating the following: Sinus tachycardia. Ventricular rate 101 bpm, NE interval 150 ms, QRS duration 82 ms, QTc 403 ms. X-rays interpreted by me (1pt min.)? @ -Chest x-ray obtained, my interpretation identifies no localized consolidations or infiltrates. CT interpreted by me (1pt min.)? @ -Not obtained U/S interpreted by me (1pt. min.)? @ -Not obtained What testing was considered but not performed? (CT, X-rays, U/S, labs)? Why? @ -Repeat troponin at the 3 hours oscar, however patient declined because she felt better and wanted to be discharged. What meds were considered but not given? Why? @ -None Did you discuss the management of the patient with other professionals? @ -No Did you reconcile home meds? @ -No Was smoking cessation discussed for >3mins.? @ -No Was critical care preformed (if so, how long)? @ -No Were there social determinants of health that impacted care today? How? (Homelessness, low income, unemployed, alcoholism, drug addiction, transportatio n, low edu. Level, literacy, decrease access to med. care, [facility], rehab)? @ -No Was there de-escalation of care discussed even if they declined? (Discuss DNR or withdrawal of care, Hospice)? @ -No What co-morbidities impacted this encounter? (DM, HTN, Smoking, COPD, CAD, Cancer, CVA, Hep., AIDS, mental health diagnosis, sleep apnea, morbid obesity)? @ -POTS Was patient admitted / discharged? @ -Discharged. Lab work demonstrates a hemoglobin of 8.1, which is decreased by approximately 1 point from a year ago. Lab work otherwise unremarkable. Troponin and D-dimer negative. COVID, influenza, and RSV testing negative. Chest x-ray reveals no acute process. Given the acute onset of her symptoms, I did recommend a repeat troponin at the 3-hour oscar. However, patient declined. States that she felt substantially better following the IV fluids as well as Toradol and Tylenol. [place] like she may have had more of a panic attack and requested discharge home. We did discuss that a cardiac event cannot be ruled out in this case, however it is felt to be much less likely given her low heart score of 0-1. Symptoms could have very well been related to a panic attack. We did discuss that being anemic can also make her feel unwell. Given that she just got off of her period, it is possible that her hemoglobin is lower than normal, which could have been why she felt more unwell over the last week. Advised she begin an iron supplement. She does have a follow-up appointment with her primary care provider in a couple of days, and I advised they discuss this further. Patient discharged home in stable condition. Case discussed with ED attending Dr. Barnes. Return precautions reviewed in depth, the patient is instructed to return to the emergency department with any new, worsening, or concerning symptoms. Patient verbalized understanding. Undiagnosed new problem with uncertain prognosis? @ -None Drug Therapy requiring intensive monitoring for toxicity (Heparin, Nitro, Insulin, Cardizem)? @ -None Were any procedures done? @ -None Diagnosis/symptom? @ -Anemia, dizziness, headache Acute, or Chronic, or Acute on Chronic? @ -Acute Uncomplicated (without systemic symptoms) or Complicated (systemic symptoms)? @ -Uncomplicated Side effects of treatment? @ -None Exacerbation, Progression, or Severe Exacerbation] @ -Not applicable Poses a threat to life or bodily function? @ -Unlikely - Lab Data Result diagrams: 10/02/24 11:56 10/02/24 11:56 Lab Results 10/02/24 10/02/24 10/02/24 Range/Units 11:56 11:56 11:56 WBC 7.8 (3.8-10.6) k/uL RBC 4.37 (3.80-5.40) m/uL Hgb 8.1 L (11.4-16.0) gm/dL Hct 28.1 L (34.0-46.0) % MCV 64.4 L (80.0-100.0) fL MCH 18.6 L (25.0-35.0) pg MCHC 29.0 L (31.0-37.0) g/dL RDW 17.2 H (11.5-15.5) % Plt Count 577 H (150-450) k/uL MPV 6.1 Neutrophils % 62 % Lymphocytes % 28 % Monocytes % 7 % Eosinophils % 1 % Basophils % 0 % Neutrophils # 4.8 (1.3-7.7) k/uL Lymphocytes # 2.2 (1.0-4.8) k/uL Monocytes # 0.6 (0-1.0) k/uL Eosinophils # 0.1 (0-0.7) k/uL Basophils # 0.0 (0-0.2) k/uL Hypochromasia Marked Poikilocytosis Slight Anisocytosis Slight Microcytosis Marked PT 10.4 (10.0-12.5) sec INR 0.9 (<1.2) APTT 21.0 L (22.0-30.0) sec D-Dimer 0.27 (<0.60) mg/L FEU Sodium 140 (137-145) mmol/L Potassium 4.2 (3.5-5.1) mmol/L Chloride 105 (98-107) mmol/L Carbon Dioxide 27 (22-30) mmol/L Anion Gap 8 mmol/L BUN 19 H (7-17) mg/dL Creatinine 0.59 (0.52-1.04) mg/dL Est GFR (CKD-EPI)AfAm >90 (>60 ml/min/1.73 sqM) Est GFR (CKD-EPI)NonAf >90 (>60 ml/min/1.73 sqM) Glucose 94 (74-99) mg/dL Calcium 9.1 (8.4-10.2) mg/dL Magnesium 2.1 (1.6-2.3) mg/dL Total Bilirubin 0.1 L (0.2-1.3) mg/dL AST 23 (14-36) U/L ALT 19 (4-34) U/L Alkaline Phosphatase 103 (38-126) U/L Troponin I (0.000-0.034) ng/mL Total Protein 6.9 (6.3-8.2) g/dL Albumin 4.0 (3.5-5.0) g/dL HCG, Qual Not Detected Influenza Type A (PCR) (Not Detectd) Influenza Type B (PCR) (Not Detectd) RSV (PCR) (Not Detectd) SARS-CoV-2 (PCR) (Not Detectd) 10/02/24 10/02/24 Range/Units 11:56 11:56 WBC (3.8-10.6) k/uL RBC (3.80-5.40) m/uL Hgb (11.4-16.0) gm/dL Hct (34.0-46.0) % MCV (80.0-100.0) fL MCH (25.0-35.0) pg MCHC (31.0-37.0) g/dL RDW (11.5-15.5) % Plt Count (150-450) k/uL MPV Neutrophils % % Lymphocytes % % Monocytes % % Eosinophils % % Basophils % % Neutrophils # (1.3-7.7) k/uL Lymphocytes # (1.0-4.8) k/uL Monocytes # (0-1.0) k/uL Eosinophils # (0-0.7) k/uL Basophils # (0-0.2) k/uL Hypochromasia Poikilocytosis Anisocytosis Microcytosis PT (10.0-12.5) sec INR (<1.2) APTT (22.0-30.0) sec D-Dimer (<0.60) mg/L FEU Sodium (137-145) mmol/L Potassium (3.5-5.1) mmol/L Chloride (98-107) mmol/L Carbon Dioxide (22-30) mmol/L Anion Gap mmol/L BUN (7-17) mg/dL Creatinine (0.52-1.04) mg/dL Est GFR (CKD-EPI)AfAm (>60 ml/min/1.73 sqM) Est GFR (CKD-EPI)NonAf (>60 ml/min/1.73 sqM) Glucose (74-99) mg/dL Calcium (8.4-10.2) mg/dL Magnesium (1.6-2.3) mg/dL Total Bilirubin (0.2-1.3) mg/dL AST (14-36) U/L ALT (4-34) U/L Alkaline Phosphatase (38-126) U/L Troponin I <0.012 (0.000-0.034) ng/mL Total Protein (6.3-8.2) g/dL Albumin (3.5-5.0) g/dL HCG, Qual Influenza Type A (PCR) Not Detected (Not Detectd) Influenza Type B (PCR) Not Detected (Not Detectd) RSV (PCR) Not Detected (Not Detectd) SARS-CoV-2 (PCR) Not Detected (Not Detectd) - Radiology Data Radiology results: report reviewed, image reviewed Disposition Clinical Impression: Dizziness, Anemia, Headache Disposition: HOME SELF-CARE Instructions (If sedation given, give patient instructions): Anemia (ED) Additional Instructions: Return to the emergency department with any new, worsening, or concerning symptoms. Begin taking an iron supplement daily. Ferrous gluconate tends to be better tolerated and easier on the stomach. This comes in multiple doses in the range of 200s to 300s. Look for a bottle at the store with ferrous gluconate on it and any of the doses will be fine. It may come in doses like 240 mg, 300 mg, or 324 mg. Follow-up with your primary care provider as scheduled. Is patient prescribed a controlled substance at d/c from ED?: No Referrals: Augustine Jane DO [Primary Care Provider] - 1-2 days Time of Disposition: 15:19
[2024-10-02] MEDS: KETOROLAC 15 MG/ML 1 ML VIAL IVP STA ×2 (12:27→14:37)
[2024-10-02] MEDS: SODIUM CHLORIDE 0.9% 1,000 ML IV STA (12:32)
[2024-10-02 12:59] LABS: Anisocytosis Slight; Basophils % (A) 0 %; Eosinophils # (A) 0.1 k/uL (0-0.7); Eosinophils % (A) 1 %; HCT 28.1 % (34.0-46.0); HGB 8.1 gm/dL (11.4-16.0); Hypochromasia Marked; Lymphocytes # (A) 2.2 k/uL (1.0-4.8); Lymphocytes % (A) 28 %; MCH 18.6 pg (25.0-35.0); MCV 64.4 fL (80.0-100.0); Mean Platelet Volume 6.1; Microcytosis Marked; Monocytes # (A) 0.6 k/uL (0-1.0); Monocytes % (A) 7 %; Neutrophils # (A) 4.8 k/uL (1.3-7.7); Neutrophils % (A) 62 %; Platelet Count 577 k/uL (150-450); Poikilocytosis Slight; RBC 4.37 m/uL (3.80-5.40); RDW 17.2 % (11.5-15.5); WBC 7.8 k/uL (3.8-10.6)
[2024-10-02 13:06] LABS: HCG,Qualitative Serum Not Detected
[2024-10-02 13:08] LABS: ALT 19 U/L (4-34); AST 23 U/L (14-36); African American GFR (CKD) >90 (>60 ml/min/1.73 sqM); Alkaline Phosphatase 103 U/L (38-126); Anion Gap 8 mmol/L; Blood Urea Nitrogen 19 mg/dL (7-17); Calcium 9.1 mg/dL (8.4-10.2); Carbon Dioxide 27 mmol/L (22-30); Chloride 105 mmol/L (98-107); Glucose 94 mg/dL (74-99); Magnesium 2.1 mg/dL (1.6-2.3); Non-African American GFR(CKD) >90 (>60 ml/min/1.73 sqM); Potassium 4.2 mmol/L (3.5-5.1); Sodium 140 mmol/L (137-145); Total Bilirubin 0.1 mg/dL (0.2-1.3); Total Protein 6.9 g/dL (6.3-8.2)
[2024-10-02 13:14] LABS: INR 0.9 (<1.2); Prothrombin Time 10.4 sec (10.0-12.5)
--- NOTE | 2024-10-02 13:20 | XR ---
EXAMINATION TYPE: XR chest 2V DATE OF EXAM: 10/02/2024 12:55 PM COMPARISON: 10/04/2022 CLINICAL INDICATION: Female, 39 years old with history of Chest Pain, , TECHNIQUE: PA and lateral views FINDINGS: The cardiomediastinal silhouette, aorta, and pulmonary vasculature are within normal limits. Hazy kim g densities relating to overlying soft tissue. Otherwise, lungs and pleural spaces are clear. IMPRESSION: No acute cardiopulmonary process. [facility], Workstation: [id number], 10/02/2024 1:17 PM
[2024-10-02] MEDS: ACETAMINOPHEN TAB 500 MG TAB PO STA (14:36)
[2024-10-02 15:31] VITALS: BP 132/70; PULSE 78
== END 2024-10-02 15:31 | disposition home or self-care (01) ==
LOC: EC 11:21
DX: D64.9 Anemia, unspecified (principal); R42 Dizziness and giddiness; Q05.9 Spina bifida, unspecified; Z88.0 Allergy status to penicillin; Z88.1 Allergy status to other antibiotic agents; Z86.16 Personal history of COVID-19; Z90.49 Acquired absence of other specified parts of digestive tract; Z90.89 Acquired absence of other organs; Z11.52 Encounter for screening for COVID-19
CPT/HCPCS: 36415; 93005; 85379; 80053; 83735; 84484; 85025; 85610; 85730; 84703; 87636; 71046; 99285; 96374; 96376; 96361; J1885